=== PATIENT | female | born 1950 | race Caucasian/White ===

== ENCOUNTER 2017-03-06 21:11 | Observation (INO) | payer MEDICARE, OTHER ==
--- NOTE | ~2017-03-06 | HP ---
Unit #: [id number] #: [id number] Patient: DESTINY LEMONS [id number] [address] [place], [place] [address] [id number] MR#: [id number] NAME: DESTINY LEMONS ROOM: [facility] Age: 67 Sex: F Admission Date: 03/07/2017 : 1950 Attending Physician: Allan Goss M.D. Primary Care Physician: No Primary Care Physician HISTORY AND PHYSICAL ADMITTING DIAGNOSIS Right midshaft humeral fracture. HISTORY This is a 67-year-old lady who is relatively healthy. She lives at home. She was making herself a sandwich in the kitchen when she went around the enterprise and she thinks she tripped over the dog and she fell. She landed on her right arm, had severe pain, and had difficulty getting up. Was brought to the emergency room and x-rays revealed an oblique comminuted right humeral shaft fracture. It does extend proximally, but not into the head. She is admitted for observation for pain control and she will be placed into a brace. PAST MEDICAL HISTORY Her past medical history reveals that she has no drug allergies. She lives at home. She does use tobacco. She denies the use of alcohol or illicit drugs. Her only previous surgery was a hysterectomy. Her past medical history otherwise reveals that she has no (1) . REVIEW OF SYSTEMS She denies any headaches, blurred vision, and loss of consciousness. She denies any chest pain. No shortness of air. No nausea, vomiting, or diarrhea. She denies any frequency of urination or burning. She, orthopedically, complains of some arthritis in her hands and her back and she has a history of spinal stenosis. Her neurologic review of systems is negative as is her vascular review. MEDICATIONS She is on no medications at home. IMPRESSION She has a right humeral shaft fracture, which will be treated at this point nonoperatively. We will discharge her after her brace has arrived. Dictated by Laureen White/lm TD: 03/07/2017 13:05 JOB #: [id number] Unit #: [id number] #: [id number] Patient: DESTINY LEMONS HISTORY AND PHYSICAL Page 1 of 1 X Allan Goss MD HISTORY AND PHYSICAL
--- NOTE | ~2017-03-06 | CR157 ---
[facility] A Service of [facility] RADIOLOGY TEXT RESULTS PATIENT: DESTINY LEMONS LOCATION: [place] [address] : [birth year] UNIT #: [id number] AGE: [address]: Allan Goss MD SEX: F ORDER DR: [id number] [facility] [address] [facility]. [place], [place] [address] [id number] MR#: [id number] Acc #: [id number] NAME: DESTINY LEMONS : 1950 SEX: F STUDY DATE/TIME: 03/06/2017 22:17 UNIT: [facility] ROOM: STUDY DESCRIPTION: CR Humerus Min 2 View Rt Attending Physician: Dipti Graves M.D. Ordering Physician: Dipti Graves M.D. Primary Care Physician: Primary Care Physician No MEDICAL IMAGING REPORT This report is preliminary unless electronic signature is present EXAM Right humerus, 03/06/2017 HISTORY 67-year-old female in the ED with arm pain after a fall tonight. TECHNIQUE AP and lateral radiographs of the right humerus. FINDINGS The examination shows a mildly comminuted and mildly displaced spiral fracture through the proximal shaft of the humerus. The upper portion of the fracture extends just below the level of the intact humeral neck. Distal humerus and the humeral head and neck are intact. IMPRESSION Spiral fracture of the proximal shaft right humerus. Dictated by... Robert Gee M.D. THIS IS AN ELECTRONICALLY VERIFIED REPORT Robert Gee M.D. at 03/07/2017 6:05 AM BAKARI/pancho TD: 03/06/2017 23:40 JOB #: [id number] MEDICAL IMAGING REPORT Page 1 of 1 COPY
--- NOTE | ~2017-03-06 | DS ---
Unit #: [id number] #: [id number] Patient: DESTINY LEMONS [id number] [address] [place], [place] [address] [id number] I MR#: [id number] NAME: DESTINY LEMONS ROOM: [facility] Age: 67 Sex: F Admission Date: 03/07/2017 : 1950 Discharge Date: Attending Physician: Allan Goss M.D. Primary Care Physician: No Primary Care Physician DISCHARGE SUMMARY HOSPITAL COURSE Ms. Lemons was admitted as an observation patient last night when she presented to the emergency room after a fall at home with a humeral shaft fracture. She has been in the hospital overnight and has been seen by Leslie Burdick and has been fitted for her Howell brace. It is felt she can be discharged home this afternoon. DISCHARGE MEDICATIONS She is on no routine home medicines. She will be on Percocet 10/325 for pain. DISCHARGE INSTRUCTIONS 1. She is to keep the brace on and a sling. 2. She will follow up in the office in one week. CONDITION Her condition on discharge is improved. DISPOSITION To home. Dictated by... Laureen White/lm TD: 03/07/2017 13:27 JOB #: [id number] DISCHARGE SUMMARY Page 1 of 1 X Allan Goss MD X DISCHARGE SUMMARY
[2017-03-07] MEDS ORDERED: LORTAB 5-325 M1 EACH PO (15:36)
== END 2017-03-07 16:45 | disposition home or self-care (01) ==
LOC: CED 21:11 → CEDOF 03-07 00:35 → C4B 03-07 00:35 → CEDOF 03-07 00:46 → CED 03-07 00:46 → CEDOF 03-07 01:45 → C4B 03-07 01:45
DX: S42.351A Displaced comminuted fracture of shaft of humerus, right arm, initial encounter for closed fracture (principal); W01.0XXA Fall on same level from slipping, tripping and stumbling without subsequent striking against object, initial encounter; Y92.000 Kitchen of unspecified non-institutional (private) residence as the place of occurrence of the external cause; Z90.710 Acquired absence of both cervix and uterus
CPT/HCPCS: 36415; 73060; 96374; 96375; 96376; 99285; G0378; J1170; J2270